=== PATIENT | female | born 1985 | race Two or more races ===

== ENCOUNTER 2018-08-23 04:08 | Inpatient (IN) | payer OTHER ==
[2018-08-23] VITALS (29 sets, daily range): BP systolic 78–134; BP diastolic 40–75; PULSE 77–94; RESP 16–22; Ht 154.9 cm; Wt 59.6 kg
[~2018-08-23] VITALS: Ht 154.9 cm; Wt 59.6 kg
[2018-08-23] MEDS ORDERED: SOD CHLORIDE 0.9% 1,000 ML IV STA (06:21)
[2018-08-23] MEDS ORDERED: SOD CHLORIDE 0.9% 0 ML IV ONE (06:21)
[2018-08-23] MEDS ORDERED: ACETAMINOPHEN 325 MG TAB PO PRN ×2 (07:30→18:30)
[2018-08-23] MEDS ORDERED: ONDANSETRON 4 MG INJ IV PRN ×3 (07:30→18:30)
--- NOTE | 2018-08-23 07:52 | ERD ---
ER Documentation Chief Complaint Chief Complaint BIBA vaginal bleed during intercourse @ 0300; unknown if HPI Patient is a 33-year-old female with no medical problems who presents with vaginal bleeding. The patient is pale. The symptoms started at 3 AM after having sexual intercourse. She passed out and ultrasound. She was brought in by ambulance. She was going through 4 pads in 1 hour. She does not have a primary doctor or radiation oncology nurse. ROS All systems reviewed and are negative except as per history of present illness. Allergies Allergies: Coded Allergies: No Known Allergy (Unverified , 08/23/18) PMhx/Soc Medical and Surgical Hx: pt denies Medical Hx, pt denies Surgical Hx Hx Alcohol Use: No Hx Substance Use: No Hx Tobacco Use: No Smoking Status: Never smoker FmHx Family History: diabetes Physical Exam Vitals Vital Signs Date Temp Pulse Resp B/P (MAP) Pulse Ox O2 O2 Flow FiO2 Time Delivery Rate 08/23/18 84 18 92/55 (67) 100 Room Air 07:43 08/23/18 97.2 99 20 137/85 99 04:11 (102) Physical Exam Const: Pale and diaphoretic Head: Atraumatic Eyes: Normal Conjunctiva ENT: Normal External Ears, Nose and Mouth. Neck: Full range of motion. No meningismus. Resp: Clear to auscultation bilaterally Cardio: Regular rate and rhythm, no murmurs Abd: Soft, non tender, non distended. Normal bowel sounds Skin: Pale and diaphoretic Back: No midline or flank tenderness Ext: No cyanosis, or edema Neur: Awake and alert Psych: Normal Mood and Affect Result Diagram: 08/23/18 0534 08/23/18 0533 Results 24 hrs Laboratory Tests Test 08/23/18 05:33 08/23/18 05:34 Sodium Level 141 mmol/L Potassium Level 3.9 mmol/L Chloride Level 107 mmol/L Carbon Dioxide Level 24 mmol/L Anion Gap 10 Blood Urea Nitrogen 11 mg/dl Creatinine 0.58 mg/dl Est Glomerular Filtrat Rate mL/min > 60 mL/min Glucose Level 134 mg/dl Calcium Level 8.7 mg/dl Total Bilirubin 0.3 mg/dl Direct Bilirubin 0.00 mg/dl Indirect Bilirubin 0.3 mg/dl Aspartate Amino Transf (AST/SGOT) 34 IU/L Alanine Aminotransferase (ALT/SGPT) 34 IU/L Alkaline Phosphatase 67 IU/L Total Protein 7.2 g/dl Albumin 4.4 g/dl Globulin 2.80 g/dl Albumin/Globulin Ratio 1.57 White Blood Count 7.0 10^3/ul Red Blood Count 3.76 10^6/ul Hemoglobin 11.8 g/dl Hematocrit 35.0 % Mean Corpuscular Volume 93.1 fl Mean Corpuscular Hemoglobin 31.4 pg Mean Corpuscular Hemoglobin Concent 33.7 g/dl Red Cell Distribution Width 12.9 % Platelet Count 297 10^3/UL Mean Platelet Volume 8.6 fl Immature Granulocytes % 0.300 % Neutrophils % 73.8 % Lymphocytes % 20.0 % Monocytes % 5.3 % Eosinophils % 0.3 % Basophils % 0.3 % Nucleated Red Blood Cells % 0.0 /100WBC Immature Granulocytes # 0.020 10^3/ul Neutrophils # 5.2 10^3/ul Lymphocytes # 1.4 10^3/ul Monocytes # 0.4 10^3/ul Eosinophils # 0.0 10^3/ul Basophils # 0.0 10^3/ul Nucleated Red Blood Cells # 0.0 10^3/ul Serum HCG, Qualitative NEGATIVE Current Medications Medications Dose Sig/Jennifer Start Time Status Last (Trade) Ordered Route PRN Stop Time Admin Dose Reason Admin Sodium 1,000 ml @ Q1H STAT 08/23/18 DC 08/23/18 Chloride 1,000 mls/hr IV 06:21 08/23/18 06:29 07:20 Sodium 0 ml @ 0 Q0M ONCE 08/23/18 DC Chloride mls/hr IV 06:21 08/23/18 06:24 Ondansetron 4 mg ER BRIDGE 08/23/18 HCl (Zofran PRN IV 07:30 08/24/18 Inj) NAUSEA/VOMITI 07:29 NG 650 mg ER BRIDGE 08/23/18 Acetaminophen PRN PO 07:30 08/24/18 (Tylenol .MILD PAIN 07:29 Tab) 1-3 OR TEMP Procedures/MDM EKG pending. Ultrasound pending radiology read at this time. Patient is a 33-year-old female who presents with vaginal bleeding. She has been passing significant amount of blood and clots. Her hemoglobin is 11 but she was pale diaphoretic and hypotensive with a systolic blood pressure of less than 90 when I saw her and I ordered 1 L of normal saline for fluid resuscitation and 2 units of packed red blood cells because of the excessive bleeding. I did order a stat consult for gynecology and Dr. Zuniga came to the bedside and will take the patient to the operating room for examination and possible repair or D&C. The patient will be admitted to a telemetry bed due to the syncope. I believe that inpatient admission is required as the patient lost a significant amount of blood requiring blood transfusion and had symptomatic anemia with pale, diaphoresis, and syncope. Departure Diagnosis: Primary Impression: Syncope Syncope type: unspecified Qualified Codes: R55 - Syncope and collapse Additional Impression: Vaginal bleeding Condition: BEREKET Nolasco MD Aug 23, 2018 07:52
--- NOTE | 2018-08-23 10:04 | PREAC ---
Date/Time of Note Date/Time of Note DATE: 08/23/18 TIME: 09:50 Anesthesia Eval and Record Evaluation Time Pre-Procedure Interview DATE: 08/23/18 TIME: 09:50 Age 33 Sex female NPO: 8 hrs Preoperative diagnosis vaginal bleeding Planned procedure dilation and curettage Past Medical History Past Medical History: None Surgery & Anesthesia Issues No known issue (never never had anesthesia) Meds Anticoagulation: No Beta Francesca within 24 hr: No Reason Beta Francesca not given: Pt. not on B-Francesca No Active Prescriptions or Reported Meds Current Medications Ondansetron HCl (Zofran Inj) 4 mg ER BRIDGE PRN IV NAUSEA/VOMITING; Start 08/23/18 at 07:30; Stop 08/24/18 at 07:29 Acetaminophen (Tylenol Tab) 650 mg ER BRIDGE PRN PO .MILD PAIN 1-3 OR TEMP; Start 08/23/18 at 07:30; Stop 08/24/18 at 07:29 Meds reviewed: Yes Allergies Coded Allergies: No Known Allergy (Unverified , 08/23/18) Allergies Reviewed: Yes Labs/Studies Labs Reviewed: Reviewed by anesthesiologist Result Diagram: 08/23/18 0534 08/23/18 0533 Laboratory Tests 08/23/18 05:33 08/23/18 05:34 Blood Bank Test 08/23/18 05:33 Antibody Screen NEGATIVE Blood Product Summary Counts Blood Type O POSITIVE Crossmatch Red Blood Cells test: Negative (serum) Studies: ECG Pre-procedure Exam Last vitals Vital Signs Date Temp Pulse Resp B/P (MAP) Pulse Ox O2 O2 Flow FiO2 Time Delivery Rate 08/23/18 84 18 92/55 (67) 100 Room Air 07:43 08/23/18 97.2 04:11 Airway: Adequate mouth opening Mallampati: Mallampati II Teeth: Normal Lung: Normal Heart: Normal ASA Physical Status ASA physical status: 1 Emergency: E Planned Anesthetic General/MAC: LMA Planned Pain Management Parenteral pain med, Local by surgeon Pre-operative Attestations Prior to commencing anesthesia and surgery, the patient was re-evaluated, there was verification of: *The patient's identity *The results of appropriate recent lab work and preoperative vital signs *The above evaluation not changing prior to induction *Anesthetic plan, risk benefits, alternative and complications discussed with patient/family; questions answered; patient/family understands, accepts and wishes to proceed. MARISOL BETANCUR Aug 23, 2018 10:03
[2018-08-23] MEDS ORDERED: MEPERIDINE 25 MG INJ IV PRN (10:30)
[2018-08-23] MEDS ORDERED: FENTAnyl 50 MCG/ML VIAL IV PRN ×2 (10:30)
[2018-08-23] MEDS ORDERED: OXYCODONE/ACETAMINOPHEN (5/325) TAB PO PRN ×2 (10:30)
[2018-08-23] MEDS ORDERED: LIDOCAINE 2% (SDV) 5 ML INJ ONE (11:14)
[2018-08-23] MEDS ORDERED: PROPOFOL 20 ML ONE (11:14)
[2018-08-23] MEDS ORDERED: CEFAZOLIN 1 GM INJ ONE (11:39)
[2018-08-23] MEDS ORDERED: ONDANSETRON 4 MG INJ ONE (12:08)
[2018-08-23] MEDS ORDERED: METOCLOPRAMIDE 10 MG INJ ONE (12:08)
--- NOTE | 2018-08-23 12:22 | OPPN ---
Date/Time of Note Date/Time of Note DATE: 08/23/18 TIME: 12:17 Operative Report Preoperative Diagnosis Possible vaginal laceration,Heavy vaginal bleeding Postoperative Diagnosis extensive post cervical and vaginal laceration Operation/Procedure Performed D&C&hysteroscopy repair of vaginal and cervical lacerations Surgeon see signature line preschool assistant principal none Anesthesia: general Estimated blood loss: 0 - 10 ml's Transfusion Required none Specimen EMT Grafts/Implants none Complications none BRENDA RDZ M.D. Aug 23, 2018 12:21
--- NOTE | 2018-08-23 12:26 | QN ---
Documentation Comment The vaginal and cervical laceration are repaired CT for R/o any abdominal and pelvic damage due to possible perforation through the vagina A Surgery consult is recommended after CT patient is cleared from Shell Worker team.No Sex for 6 weeks-2 months is recommended BRENDA RDZ M.D. Aug 23, 2018 12:26
[2018-08-23] MEDS: FENTAnyl 50 MCG/ML VIAL IV PRN ×2 (12:45→12:54)
[2018-08-23] MEDS ORDERED: ALBUMIN HUMAN 5% 250 ML IV ONE (14:00)
--- NOTE | 2018-08-23 14:45 | PAC ---
Date/Time of Note Date/Time of Note DATE: 08/23/18 TIME: 14:45 Post-Anesthesia Notes Post-Anesthesia Note Last documented vital signs Vital Signs Date Temp Pulse Resp B/P (MAP) Pulse Ox O2 O2 Flow FiO2 Time Delivery Rate 08/23/18 98.5 14:42 08/23/18 90 19 99/42 (61) 98 Room Air 14:15 Activity: WNL Respiratory function: WNL Cardiovascular function: WNL Mental status: Baseline Pain reasonably controlled: Yes Hydration appropriate: Yes Nausea/Vomiting absent: Yes LYNDA PAULINO MD Aug 23, 2018 14:45
--- NOTE | 2018-08-23 15:48 | PREOPHP ---
DATE OF ADMISSION: 08/23/2018 HISTORY OF PRESENT ILLNESS: A 33-year-old 2, para 0 with post-coital heavy vaginal bleeding. The patient has been admitted in the emergency room with the low blood pressure and tachycardia. PAST MEDICAL HISTORY: Denies. PAST SURGICAL HISTORY: Denies. ALLERGIES: NKDA. PHYSICAL EXAMINATION: VITAL SIGNS: Stable. GENERAL: Normal. ABDOMEN: Not tender, not distended. GENITAL: It is very hard to do a deep exam for the patient but a vaginal laceration is suspected. ASSESSMENT AND PLAN: The patient was consented for repair of the vaginal and cervical laceration, ex am under anesthesia and D and C and hysteroscopy. Risks and benefits were discussed with the patient . Consent was signed and the patient was taken to the operating room. Dictated By: BRENDA CANAS/SKIP Conf#: [id number] DID#: [id number]
[2018-08-23] MEDS ORDERED: morphine 2 MG INJ IV PRN (18:30)
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
[2018-08-23] MEDS: SOD CHLORIDE 0.9% 1,000 ML IV SCH (20:10)
[2018-08-23] MEDS: DOCUSATE SODIUM 100 MG CAP PO SCH (20:56)
[2018-08-24 00:15] VITALS: BP 98/53; PULSE 78; RESP 17
[2018-08-24 06:09] VITALS: BP 107/56; PULSE 77; RESP 19
--- NOTE | 2018-08-24 06:34 | OPR ---
DATE OF OPERATION: 08/23/2018 PREOPERATIVE DIAGNOSES: Vaginal laceration and heavy bleeding. POSTOPERATIVE DIAGNOSIS: Extensive laceration of the cervix and vaginal posterior wall of the vagina . OPERATION PERFORMED: Extensive repair of the vaginal cervical lacerations, D and C and hysteroscopy. ATTENDING SURGEON: Luiz Zuniga MD ANESTHESIOLOGIST: Dr. Watkins. ANESTHESIA: General. COMPLICATIONS: None. ESTIMATED BLOOD LOSS: 10 mL. DESCRIPTION OF PROCEDURE: The patient was taken to the operating room where general anesthesia was f ound to be adequate. The patient was placed in dorsal lithotomy position. After prep and drape, a w eighted speculum was placed inside the vaginal vault posteriorly. Anterior lip of the cervix was gra sped by single-tooth tenaculum. A heavy gush of bleeding was noticed on the posterior surface of the cervix and at the junction of the cervix and vagina in the posterior fornix and also patient had lac eration on the cervix. All lacerations were repaired using 2-0 Vicryl sutures. Then, diagnostic hys teroscopy was done. The cervix was dilated by Norris dilators and then hysteroscope was inserted. No rmal uterine cavities are identified. Endometrial tissue was taken by a curet and then instruments w ere removed. Hemostasis achieved. The patient tolerated the procedure well. There was that w as made adjacent to the laceration. The patient and the nurse was informed about that and they were told that I do believe that vagina and the pieces of gauze tissue was most likely . It is not a sponge. The patient was taken to the recovery room. Hemostasis achieved. There was no complication for discharge. The patient was informed after the surgery about the procedure celsain g . Dictated By: LUIZ ZUNIGA MD RG/NTS Conf#: [id number] DID#: [id number] CC: LUIZ ZUNIGA MD;*EndCC*
[2018-08-24 07:32] VITALS: BP 104/55; PULSE 75; RESP 16
[2018-08-24] MEDS: DOCUSATE SODIUM 100 MG CAP PO SCH (08:24)
[2018-08-24] MEDS: SOD CHLORIDE 0.9% 1,000 ML IV SCH (08:26)
[2018-08-24] MEDS ORDERED: DOCU-144 PO (13:26)
[2018-08-24] MEDS ORDERED: CIPR500T4 PO (13:30)
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
== END 2018-08-24 15:00 | disposition home or self-care (01) | DRG 744 ==
LOC: FTE 04:08 → REC 07:09 → MS1 13:01
PROVIDERS: ADMIT Obstetrics & Gynecology; ATTEND Obstetrics & Gynecology
PROC: 0UDB8ZZ Extraction of Endometrium, Via Natural or Artificial Opening Endoscopic (ICD-10-PCS; 2018-08-23)
PROC: 30233N1 Transfusion of Nonautologous Red Blood Cells into Peripheral Vein, Percutaneous Approach (ICD-10-PCS; 2018-08-23)
PROC: 0UQ Female Reproductive System, Repair (ICD-10-PCS; principal; 2018-08-23 09:30)
DX: S37.63XA Laceration of uterus, initial encounter (principal); D62 Acute posthemorrhagic anemia; R55 Syncope and collapse; X58.XXXA Exposure to other specified factors, initial encounter
CPT/HCPCS: 36415; 36430; 74176; 76801; 76817; 80048; 80053; 81001; 83735; 84100; 84703; 85025; 86850; 86900; 86901; 86920; 88305; 93005; J0690; J2405; J2765; J3010; J7030; J7040; P9016; P9045